=== PATIENT | female | born 1985 | race Caucasian/White ===

== ENCOUNTER 2017-06-18 21:00 | Emergency (ER) | payer OTHER ==
[~2017-06-18] VITALS: Ht 172.7 cm; Wt 67.1 kg
[~2017-06-18 21:00] MED LIST: HYDR-971 PO; PRED20TA PO; PRED50TA PO; TRAM50TA PO
[2017-06-18 21:05] VITALS: BP 114/83
--- NOTE | 2017-06-18 21:40 | PHYS DOC ---
General Chief Complaint: ABDOMINAL PAIN Stated Complaint: ABD AND BACK PAIN X 2 DAYS Time Seen by MD: 21:27 Source: patient Exam Limitations: no limitations Problems: History of Present Illness Initial Comments Patient is a 31-year-old female who comes to the ED complaining of abdominal discomfort. Patient states that she developed lower abdominal discomfort starting on Thursday. She had a doctor's appointment scheduled for Thursday however when the time came for the appointment her symptoms weren't that bad so she did not follow-up with the actual appointment. After she missed the appointment on Thursday she says that her symptoms have been intermittent and slowly worsening. She says that today the discomfort spread to her bilateral low back and she threw up once at home. At that point she decided to come for evaluation, on arrival to the emergency department she did vomit once in the exam room prior to my seeing her. Patient states that she did have several loose stools 2 days ago (on Thursday) and has not had a bowel movement since that time. She denies travel or bad food exposure she denies sick contacts with similar symptoms. She's had some chills and sweats but has not taken her temperature she's not had any blood in her stools or emesis. Patient has had urinary frequency hesitancy and darkening and she states that her urine has smelled poorly the past few days. She did miss work and is requesting a work note. ED vital signs are stable (no tachycardia/fever). Timing/Duration: getting worse, changing over time Severity: moderate Modifying Factors: worse with eating, worse with movement, improves with rest Associated Symptoms: diaphoresis, fever/chills, malaise, nausea/vomiting Allergies: Coded Allergies: ketorolac (Verified Allergy, Intermediate, severe anxiety /sob, 06/05/16) Past Medical History Medical History: other (SLE, overactive bladder, bipolar) Surgical History: appendectomy Social History Smoker: non-smoker Alcohol: none Drugs: none Review of Systems Constitutional: see HPI, denies fever Respiratory: denies cough, denies shortness of breath Cardiovascular: denies chest pain, denies palpitations Gastrointestinal: see HPI Genitourinary: see HPI Musculoskeletal: see HPI, denies joint pain, denies joint swelling, denies neck pain Psychiatric/Neurological: denies headache, denies numbness, denies paresthesia Physical Exam General Appearance: WD/WN, no apparent distress Ear, Nose, Throat: hearing grossly normal, normal ENT inspection, normal pharynx Neck: non-tender, supple Respiratory: normal breath sounds, no respiratory distress Gastrointestinal: normal bowel sounds, soft (mildly distended, moderate suprapubic tenderness, generalized diffuse mild tenderness to palpation no rebound guarding or masses, negative Dai) Back: no CVA tenderness, no vertebral tenderness Extremities: non-tender, normal inspection 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 Aggressive hydration with Gatorade or water. [id number] Tylenol as needed. Prescription: Bactrim DS, Pyridium 100 mg Follow-up with your doctor in 7-10 days for recheck and urine culture results. Return to ED with new or changing symptoms. AUGUSTIN CROSS DO Jun 18, 2017 21:40
[2017-06-18] MEDS ORDERED: PROMETHAZINE IM 25 MG/ML VIAL IM ONE (22:00)
[2017-06-18] MEDS ORDERED: ONDANSETRON ODT 4 MG TAB.RAPDIS PO ONE (22:00)
[2017-06-18 22:16] LABS: CLARITY,URINE CLOUDY; COLOR,URINE YELLOW
[2017-06-18 22:17] LABS: GLUCOSE,URINE NEG (NEG)
[2017-06-18 22:18] LABS: BILIRUBIN,URINE NEG (NEG); NITRITE,URINE POS (NEG); UROBILINOGEN,URINE 0.2 mg/dL (0.2 mg/dL)
[2017-06-18 22:23] LABS: BACTERIA,URINE MANY /HPF (0-FEW); SQUAMOUS EPITHELIAL CELL,UR MOD /LPF; WBC,URINE >40 /HPF (0-4)
[2017-06-18] MEDS ORDERED: ONDA4TAB10 PO (22:23)
[2017-06-18] MEDS ORDERED: PHEN100T82 PO (22:23)
[2017-06-18] MEDS ORDERED: SULF1TAB24 PO (22:23)
[2017-06-18] MEDS ORDERED: ONDANSETRON 4MG ODT 4TABLET STARTPACK. PO ONE ×2 (22:29→22:45)
[2017-06-18] MEDS ORDERED: cefTRIAXone IM 1 GM VIAL IM ONE (22:45)
[2017-06-18] MEDS ORDERED: PHENAZOPYRIDINE 200 MG TABLET. PO ONE (22:45)
== END 2017-06-18 22:44 | disposition home or self-care (01) ==
LOC: ER 21:00
DX: N39.0 Urinary tract infection, site not specified (principal); M54.5 Low back pain; Z90.49 Acquired absence of other specified parts of digestive tract; Z88.6 Allergy status to analgesic agent
CPT/HCPCS: 81001; 87086; 96372; 99284; J0696; J2550; Q0162; 87186

== ENCOUNTER 2018-04-23 09:44 | Emergency (ER) | payer SELFPAY ==
[~2018-04-23] VITALS: Ht 172.7 cm; Wt 72.0 kg
[~2018-04-23 09:44] MED LIST changes: +ONDA4TAB10 PO; +PHEN100T82 PO; +SULF1TAB24 PO
[2018-04-23] MEDS ORDERED: HYDR-2758 PO (10:05)
--- NOTE | 2018-04-23 10:10 | PHYS DOC ---
Past History Past Medical History: Bipolar, Other Past Surgical History: Appendectomy Alcohol Use: None Drug Use: None Adult General Chief Complaint Chief Complaint: SKIN PROBLEM HPI HPI Patient is a 32-year-old female with chronic urticaria who is presenting with an apparent flareup she said that normally she does have some skin lesions but since yesterday she has noticed an increase they are all over her arms or trunk or legs they are itchy and painful no respiratory distress she normally takes 40 or 50 mg of prednisone a day she did have allergy testing at a while back but she does not have insurance so she has not been able to get good follow-up unfortunately. She felt warm last night but no objective fever that she knows about. Current Medications Current Medications Current Medications Medications (Trade) Dose Ordered Sig/Panfilo Start Time Stop Time Status Last Admin Dose Admin Methylprednisolone Sodium Succinate (SOLU-Medrol 125MG VIAL) 125 mg 1X ONCE 04/23/18 10:15 04/23/18 10:16 Allergies Allergies Allergies Coded Allergies Type Severity Reaction Last Updated Verified ketorolac Allergy Intermediate severe anxiety /sob 06/05/16 Yes Physical Exam Physical Exam Constitutional: Well developed, well nourished, no acute distress, non-toxic appearance. [] HENT: Normocephalic, atraumatic, bilateral external ears normal, oropharynx moist, no oral exudates, nose normal. [] Neck: Normal range of motion, no tenderness, supple, no stridor. [] Cardiovascular:Heart rate regular rhythm, no murmur [] Lungs & Thorax: Bilateral breath sounds clear to auscultation [] Abdomen: Bowel sounds normal, soft, no tenderness, no masses, no pulsatile masses. [] Skin: There are multiple raised wheals throughout the arms abdomen and legs trunk scattered on the face no oral swelling lungs are clear Extremities: No tenderness, no cyanosis, no clubbing, ROM intact, no edema. [] Neurologic: Alert and oriented X 3, normal motor function, normal sensory function, no focal deficits noted. [] Psychologic: Affect normal, judgement normal, mood normal. [] EKG EKG [] Radiology/Procedures Radiology/Procedures [] Course & Med Decision Making Course & Med Decision Making Pertinent Labs and Imaging studies reviewed. (See chart for details) []32-year-old female with lupus on plaque well history of apparent chronic urticaria presenting with urticaria carry a flareup she is on high dose daily prednisone she was given a dose of IM Solu-Medrol in the emergency room. She does report severe pain. I am unable to access [employer] at the time of this dictation unfortunately the website does appear to be down however the patient tells me she is not on chronic narcotic therapy and she has not been to this ER in over a year. Due to the above for #10 Ceres was provided, advised to follow- up with primary care doctor regarding her high dose of prednisone to see if there are any alternative agents. Dragon Disclaimer Dragon Disclaimer This electronic medical record was generated, in whole or in part, using a voice recognition dictation system. Departure Departure: Impression: Primary Impression: Urticaria Disposition: 01 HOME, SELF-CARE Condition: STABLE Referrals: ISAEL DYER (PCP) Patient Instructions: Hives, [id number] Scripts Hydrocodone Bit/Acetaminophen (HYDROCODONE-APAP 5-325 ) 1 Each Tablet 1 TAB PO PRN Q6HRS PRN for PAIN, #10 TAB 0 Refills Prov: LUIS MELVIN MD 04/23/18 LUIS MELVIN MD Apr 23, 2018 10:10
[2018-04-23] MEDS ORDERED: methylPREDNISolone SOD SUCC PF 125 MG/2 ML VIAL. IM ONE (10:15)
[2018-04-23 10:22] VITALS: BP 116/84
== END 2018-04-23 10:26 | disposition home or self-care (01) ==
LOC: ER 09:44
DX: L50.9 Urticaria, unspecified (principal); Z88.8 Allergy status to other drugs, medicaments and biological substances
CPT/HCPCS: 96372; 99283; J2930

== ENCOUNTER 2018-05-23 15:16 | Emergency (ER) | payer SELFPAY ==
[~2018-05-23] VITALS: Ht 172.7 cm; Wt 84.0 kg
[~2018-05-23 15:16] MED LIST changes: +HYDR-2758 PO
[2018-05-23 15:33] VITALS: BP 123/84
[2018-05-23] MEDS ORDERED: IV NORMAL SALINE 1,000ML 1,000 ML IV ONE (15:45)
[2018-05-23 16:27] LABS: BASO % 1 % (0-3); EOS % 1 % (0-3); HEMATOCRIT 44.2 % (36.0-47.0); HEMOGLOBIN 14.9 g/dL (12.0-15.5); LYMPH # 0.7 x10^3/uL (1.0-4.8); LYMPH % 13 % (24-48); MEAN CORPUSCULAR HEMOGLOBIN 31 pg (25-35); MEAN CORPUSCULAR HGB CONC 34 g/dL (31-37); MEAN CORPUSCULAR VOLUME 93 fL (79-100); MONO # 0.2 x10^3/uL (0.0-1.1); MONO % 5 % (0-9); NEUT # 4.1 x10^3uL (1.8-7.7); NEUT % 81 % (31-73); PLATELET COUNT 391 x10^3/uL (140-400); RED BLOOD COUNT 4.74 x10^6/uL (3.50-5.40); RED CELL DISTRIBUTION WIDTH 12.9 % (11.5-14.5); WHITE BLOOD COUNT 5.1 x10^3/uL (4.0-11.0)
[2018-05-23 16:35] LABS: CALCIUM 9.3 mg/dL (8.5-10.1); CREATININE 0.7 mg/dL (0.6-1.0); POTASSIUM 3.8 mmol/L (3.5-5.1)
[2018-05-23 16:36] LABS: BILIRUBIN,URINE NEG (NEG); CLARITY,URINE CLEAR; COLOR,URINE STRAW; GLUCOSE,URINE NEG (NEG)
[2018-05-23 16:37] LABS: BACTERIA,URINE FEW /HPF (0-FEW); NITRITE,URINE NEG (NEG); SQUAMOUS EPITHELIAL CELL,UR FEW /LPF; UROBILINOGEN,URINE 0.2 mg/dL (0.2 mg/dL); WBC,URINE OCC /HPF (0-4)
[2018-05-23] MEDS ORDERED: diphenhydrAMINE 50 MG/ML VIAL IVP ONE (16:45)
[2018-05-23] MEDS ORDERED: PROCHLORPERAZINE 10 MG/2 ML VIAL. IV ONE (16:45)
[2018-05-23] MEDS ORDERED: methylPREDNISolone SOD SUCC PF 125 MG/2 ML VIAL. IV ONE (16:45)
[2018-05-23 17:04] LABS: U PREG PATIENT NEGATIVE (NEG)
[2018-05-23] MEDS ORDERED: MORPHINE SULFATE 5 MG/ML SYRINGE. IV ONE (17:20)
[2018-05-23] MEDS ORDERED: HYDR-971 PO (17:55)
[2018-05-23] MEDS ORDERED: PRED-220 PO (17:57)
--- NOTE | 2018-05-24 06:35 | ED.ADGEN ---
Past History Past Medical History: Bipolar, Other Past Surgical History: Appendectomy Alcohol Use: None Drug Use: None Adult General HPI HPI Patient is a 32 year old female who presents with urticaria, nausea, generalized pain. Patient does have a history of lupus. She takes prednisone 30 mg daily along with Plaquenil. Today, she presents to the ER complaining of some nausea and vomiting over the last 48 hours. She has had hives developing over her entire body over the same time. She also has worsening generalized body pain. The patient states she has these episodes not infrequently. She has chronic hives. She is followed by her primary care physician. She does not have any respiratory involvement. No swelling of the lips, tongue, or airway problems. Review of Systems Review of Systems Constitutional: Denies fever or chills Eyes: Denies change in visual acuity HENT: Denies nasal congestion or sore throat Respiratory: Denies cough or shortness of breath Cardiovascular: No additional information not addressed in HPI GI: Denies abdominal pain, nausea : Denies dysuria Musculoskeletal: Denies back pain or joint pain Integument: hives Neurologic: Denies headache Endocrine: Denies polyuria All other systems were reviewed and found to be within normal limits, except as documented in this note. Current Medications Current Medications Current Medications Medications (Trade) Dose Ordered Sig/Panfilo Start Time Stop Time Status Last Admin Dose Admin Diphenhydramine HCl (Benadryl) 25 mg 1X ONCE 05/23/18 16:45 05/23/18 16:46 DC 05/23/18 16:19 25 MG Methylprednisolone Sodium Succinate (SOLU-Medrol 125MG VIAL) 125 mg 1X ONCE 05/23/18 16:45 05/23/18 16:46 DC 05/23/18 16:19 125 MG Morphine Sulfate (Morphine 5mg Syringe) 5 mg 1X ONCE 05/23/18 17:20 05/23/18 17:21 DC 05/23/18 17:17 5 MG Prochlorperazine Edisylate (Compazine) 10 mg 1X ONCE 05/23/18 16:45 05/23/18 16:46 DC 05/23/18 16:19 10 MG Sodium Chloride 1,000 ml @ 1,000 mls/hr 1X ONCE 05/23/18 15:45 05/23/18 16:44 DC 05/23/18 15:45 1,000 MLS/HR Allergies Allergies Allergies Coded Allergies Type Severity Reaction Last Updated Verified ketorolac Allergy Intermediate severe anxiety /sob 06/05/16 Yes Physical Exam Physical Exam Constitutional: Well developed, well nourished, no acute distress, non-toxic appearance HENT: Normocephalic, atraumatic, bilateral external ears normal, oropharynx moist Eyes: PERRLA, EOMI, conjunctiva normal Neck: Normal range of motion, no tenderness Cardiovascular:Heart rate regular rhythm, no murmur Lungs & Thorax: Bilateral breath sounds clear to auscultation Abdomen: Bowel sounds normal, soft, no tenderness Skin: Warm, dry, diffuse urticarial rash over arms, torso, neck Back: No tendernes Extremities: No edema Neurologic: Alert and oriented X 3 Current Patient Data Vital Signs Vital Signs Date Time Temp Pulse Resp B/P (MAP) Pulse Ox O2 Delivery O2 Flow Rate FiO2 05/23/18 18:05 118 20 96 Room Air 05/23/18 15:33 98.3 Lab Results Laboratory Tests Test 05/23/18 15:55 White Blood Count 5.1 x10^3/uL (4.0-11.0) Red Blood Count 4.74 x10^6/uL (3.50-5.40) Hemoglobin 14.9 g/dL (12.0-15.5) Hematocrit 44.2 % (36.0-47.0) Mean Corpuscular Volume 93 fL (79-100) Mean Corpuscular Hemoglobin 31 pg (25-35) Mean Corpuscular Hemoglobin Concent 34 g/dL (31-37) Red Cell Distribution Width 12.9 % (11.5-14.5) Platelet Count 391 x10^3/uL (140-400) Neutrophils (%) (Auto) 81 % (31-73) H Lymphocytes (%) (Auto) 13 % (24-48) L Monocytes (%) (Auto) 5 % (0-9) Eosinophils (%) (Auto) 1 % (0-3) Basophils (%) (Auto) 1 % (0-3) Neutrophils # (Auto) 4.1 x10^3uL (1.8-7.7) Lymphocytes # (Auto) 0.7 x10^3/uL (1.0-4.8) L Monocytes # (Auto) 0.2 x10^3/uL (0.0-1.1) Eosinophils # (Auto) 0.0 x10^3/uL (0.0-0.7) Basophils # (Auto) 0.0 x10^3/uL (0.0-0.2) Urine Collection Type Unknown Urine Color Straw Urine Clarity Clear Urine pH 7.0 Urine Specific [place] 1.010 Urine Protein Neg (NEG-TRACE) Urine Glucose (UA) Neg mg/dL (NEG) Urine Ketones (Stick) Neg mg/dL (NEG) Urine Blood Small (NEG) Urine Nitrite Neg (NEG) Urine Bilirubin Neg (NEG) Urine Urobilinogen Dipstick 0.2 mg/dL (0.2 mg/dL) Urine Leukocyte Esterase Neg (NEG) Urine RBC 1-2 /HPF (0-2) Urine WBC Occ /HPF (0-4) Urine Squamous Epithelial Cells Few /LPF Urine Bacteria Few /HPF (0-FEW) Urine Test Negative (NEG) Sodium Level 135 mmol/L (136-145) L Potassium Level 3.8 mmol/L (3.5-5.1) Chloride Level 98 mmol/L (98-107) Carbon Dioxide Level 30 mmol/L (21-32) Anion Gap 7 (6-14) Blood Urea Nitrogen 10 mg/dL (7-20) Creatinine 0.7 mg/dL (0.6-1.0) Estimated GFR (Cockcroft-Gault) 97.0 Glucose Level 91 mg/dL (70-99) Calcium Level 9.3 mg/dL (8.5-10.1) EKG EKG [] Radiology/Procedures Radiology/Procedures [] Course & Med Decision Making Course & Med Decision Making Pertinent Labs and Imaging studies reviewed. (See chart for details) Patient is seen and examined in the ER. She has no acute findings on her lab panel. During the ED course, she was given some IV fluids along with Compazine, Benadryl, Toradol, and a single dose of morphine. These medications did relieve her pain symptoms. Her urticaria was also improved. Plan is for discharge home. She is advised to double her dose of prednisone over the next 4 days and then return to her baseline dose of 30 mg. She is also advised to use over-the- counter antihistamine medications as needed. Return precautions are discussed and she will come back to the ER for any new or worsening symptoms. Final Impression Final Impression Urticaria Rosemarie Disclaimer Rosemarie Disclaimer This electronic medical record was generated, in whole or in part, using a voice recognition dictation system. ZEHRA RIDER DO May 24, 2018 06:35
== END 2018-05-23 18:05 | disposition home or self-care (01) ==
LOC: ER 15:16
DX: L50.9 Urticaria, unspecified (principal); M79.1 Myalgia; R11.2 Nausea with vomiting, unspecified; F31.9 Bipolar disorder, unspecified; Z88.8 Allergy status to other drugs, medicaments and biological substances
CPT/HCPCS: 36415; 80048; 81001; 81025; 85025; 96361; 96374; 96375; 99285; J0780; J1200; J2270; J2930; J7030

== ENCOUNTER 2020-03-15 14:18 | Emergency (ER) | payer SELFPAY ==
[~2020-03-15] VITALS: Ht 172.7 cm; Wt 66.0 kg
[~2020-03-15 14:18] MED LIST changes: +HYDR-2155 PO; -HYDR-2758 PO; +HYDR-3165 PO; -HYDR-971 PO; +PRED-220 PO
[2020-03-15 14:20] VITALS: BP 125/97
--- NOTE | 2020-03-15 14:37 | PHYS DOC ---
Past History Past Medical History: Bipolar, Other Additional Past Medical Histor: Lupus Past Surgical History: Appendectomy Alcohol Use: None Drug Use: None General Adult EDM: Chief Complaint: HAND PROBLEM HPI: HPI: Patient presents to the emergency department for evaluation of a right hand injury sustained about an hour prior to arrival. She states she was walking down the stairs, lost her balance, and got her right hand caught between the banister and a heavy object. She complains of soft tissue swelling, and bruising noted along the ulnar aspect of the hand, along the shaft of the fifth metacarpal. The MCP joints and wrist are nontender, with normal range of motion in all digits, she has no other injuries. She has no open wounds. She has no other complaints or injuries. Review of Systems: Review of Systems: Constitutional: Denies fever or chills Musculoskeletal: Denies back pain or joint pain Integument: Denies rash Heart Score: Risk Factors: Risk Factors: DM, Current or recent (<one month) smoker, HTN, HLP, family history of CAD, obesity. Risk Scores: Score 0 - 3: 2.5% MACE over next 6 weeks - Discharge Home Score 4 - 6: 20.3% MACE over next 6 weeks - Admit for Clinical Observation Score 7 - 10: 72.7% MACE over next 6 weeks - Early Invasive Strategies Allergies: Allergies: Allergies Coded Allergies Type Severity Reaction Last Updated Verified ketorolac Allergy Intermediate severe anxiety /sob 06/05/16 Yes Physical Exam: PE: PHYSICAL EXAM: HEENT: Atruamatic NECK: Supple, normal ROM, non-tender. CARDIAC: Regular Rate and Rhythm LUNGS: Clear Bilaterally EXTREMITIES: There is tenderness to palpation of soft tissue swelling on the ulnar aspect of the right hand, overlying the shaft of the fifth metacarpal. Distal capillary refill, sensation, and motor function is normal. There is no rotation or malalignment of the digits. The wrist and proximal to the wrist in the right upper extremity are atraumatic, the remainder the extremities are at raumatic. The remainder the hand on the right, other than the area of the fifth metacarpal, is nontender and atraumatic. EKG: EKG: [] Radiology/Procedures: Radiology/Procedures: PROCEDURE: HAND RIGHT 3V Three-view right hand HISTORY: Pain status post injury AP lateral oblique views right hand COMPARISON: July 13, 2012 FINDINGS: There is degenerative changes of the distal interphalangeal joint of the little finger with minimal marginal spurring and mild anterior lateral subluxation. The remaining visualized osseous structures appear normal. IMPRESSION: Degenerative changes of the distal interphalangeal joint of the little finger consistent with osteoarthrosis. No acute findings. [] Course & Med Decision Making: Course & Med Decision Making Pertinent Imaging studies reviewed. (See chart for details) [] Patient remains stable. I discussed test results, the need for close follow- up, and return precautions. Dragon Disclaimer: Dragon Disclaimer: This electronic medical record was generated, in whole or in part, using a voice recognition dictation system. Departure Departure: Impression: Primary Impression: Hand contusion Disposition: HOME, SELF-CARE Condition: STABLE Referrals: SHIREEN SORIANO DO (PCP) Patient Instructions: Hand Contusion, RICE - Routine Care for Injuries SELENA ALCANTARA MD Mar 15, 2020 14:36
--- NOTE | 2020-03-15 14:53 | RAD ---
Three-view right hand HISTORY: Pain status post injury AP lateral oblique views right hand COMPARISON: July 13, 2012 FINDINGS: There is degenerative changes of the distal interphalangeal joint of the little finger with minimal marginal spurring and mild anterior lateral subluxation. The remaining visualized osseous structures appear normal. IMPRESSION: Degenerative changes of the distal interphalangeal joint of the little finger consistent with osteoarthrosis. No acute findings. Electronically signed by: Saroj Azul III, MD (03/15/2020 2:50 PM) [id number]
== END 2020-03-15 14:58 | disposition home or self-care (01) ==
LOC: ER 14:18
DX: S60.221A Contusion of right hand, initial encounter (principal); Z88.8 Allergy status to other drugs, medicaments and biological substances; W23.0XXA Caught, crushed, jammed, or pinched between moving objects, initial encounter; Y93.01 Activity, walking, marching and hiking; Y92.89 Other specified places as the place of occurrence of the external cause; Y99.8 Other external cause status
CPT/HCPCS: 73130; 99283

== ENCOUNTER 2021-06-20 16:58 | Emergency (ER) | payer SELFPAY ==
[~2021-06-20] VITALS: Ht 172.7 cm; Wt 66.0 kg
--- NOTE | 2021-06-20 17:27 | PHYS DOC ---
Past History Past Medical History: Other Additional Past Medical Histor: Lupus (BREANN BRADFORD DO) Past Surgical History: Appendectomy (BREANN BRADFORD DO) Alcohol Use: None Drug Use: None (BREANN BRADFORD DO) General Adult EDM: Chief Complaint: ABDOMINAL PAIN HPI: HPI: 35-year-old female presents with nausea, vomiting, abdominal pain, fatigue. The patient started having vomiting and diarrhea today. The abdominal pain is a generalized cramping. She has had multiple episodes. She feels very tired. Yesterday she had fatigue and general malaise. The patient is not vaccinated against COVID-19. She has not been tested for COVID-19. She does have lupus and had a flareup recently. She feels like she has had a fever but did not measure one. (BREANN BRADFORD DO) Review of Systems: Review of Systems: Constitutional: Fever Eyes: Denies change in visual acuity HENT: Denies nasal congestion or sore throat Respiratory: Denies cough or shortness of breath Cardiovascular: Denies chest pain or edema GI: Generalized abdominal pain, nausea, vomiting, diarrhea. : Denies dysuria Musculoskeletal: Denies back pain or joint pain Integument: Denies rash Neurologic: Denies headache, focal weakness or sensory changes Endocrine: Denies polyuria or polydipsia Lymphatic: Denies swollen glands Psychiatric: Denies depression or anxiety (BREANN BRADFORD DO) Allergies: Allergies: Allergies Coded Allergies Type Severity Reaction Last Updated Verified ketorolac Allergy Intermediate severe anxiety /sob 06/05/16 Yes (BREANN BRADFORD DO) Physical Exam: PE: Constitutional: Well developed, well nourished, no acute distress, non-toxic appearance. [] HENT: Normocephalic, atraumatic, bilateral external ears normal, oropharynx moist, no oral exudates, nose normal. [] Eyes: PERRLA, EOMI, conjunctiva normal, no discharge. [] Neck: Normal range of motion, no tenderness, supple, no stridor. [] Cardiovascular: Heart rate 102, regular rhythm, no murmur [] Lungs & Thorax: Bilateral breath sounds clear to auscultation [] Abdomen: Bowel sounds normal, soft, generalized tenderness, no masses, no pulsatile masses. [] Skin: Warm, dry, no erythema, no rash. [] Back: No tenderness, no CVA tenderness. [] Extremities: No tenderness, no cyanosis, no clubbing, ROM intact, no edema. [] Neurologic: Alert and oriented X 3, normal motor function, normal sensory function, no focal deficits noted. [] Psychologic: Affect normal, judgement normal, mood normal. [] (BREANN BRADFORD DO) Current Patient Data: Vital Signs: Vital Signs Date Time Temp Pulse Resp B/P (MAP) Pulse Ox O2 Delivery O2 Flow Rate FiO2 06/20/21 17:08 97.5 112 22 167/102 96 (BREANN BRADFORD DO) EKG: EKG: [] (BREANN BRADFORD DO) EKG: My interpretation EKG shows a sinus rhythm at 96 bpm. Slightly prolonged QT interval at 390 ms. QTC is 494 ms. No findings of acute STEMI with contralateral changes. Time of this EKG was 1736 hrs. (TIFFANY BHAKTA MD) Radiology/Procedures: Radiology/Procedures: [] (BREANN BRADFORD DO) Heart Score: C/O Chest Pain: N/A Risk Factors: Risk Factors: DM, Current or recent (<one month) smoker, HTN, HLP, family history of CAD, obesity. Risk Scores: Score 0 - 3: 2.5% MACE over next 6 weeks - Discharge Home Score 4 - 6: 20.3% MACE over next 6 weeks - Admit for Clinical Observation Score 7 - 10: 72.7% MACE over next 6 weeks - Early Invasive Strategies (BREANN BRADFORD DO) C/O Chest Pain: N/A HEART Score for Chest Pain: HEART Score for Chest Pain Response (Comments) Value History Slighlty/Non-Suspicious 0 ECG Normal 0 Age < 45 0 Risk Factors 1 or 2 Risk Factors 1 Troponin < Normal Limit 0 Total 1 (TIFFANY BAHKTA MD) Course & Med Decision Making: Course & Med Decision Making Pertinent Labs and Imaging studies reviewed. (See chart for details) The patient's work-up is pending. 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 [] (BREANN BRADFORD DO) Course & Med Decision Making See Dr. Bradford chart for details prior shift change 1800. Patient to remain on clear fluids. No solids or milk products. Push fluids such as Jell-O, apple juice, grape juice, popsicles,. Take Tylenol and ibuprofen for discomfort. Follow-up pending Covid test. Self isolate. Take Zofran 8 mg up to 4 times a day for active nausea and vomiting. Reexam if no improvement. Follow-up primary care. Appears this is a viral syndrome. However with history of lupus must entertain high risk or exacerbation of this illness. Must follow-up closely with primary care. Recommend patient get flu vaccination this fall. Get Covid vaccination went over this acute illness. At time of discharge patient lactic acid cleared. Electrolytes had normalized. The patient report marked clearing of her symptoms. Impression: 1. N/V/Diarrhea- Abdomen Pain 2. Dehydration 3. Hypokalemia- 21.8 4. Mild Leukocytosis 13.8 5. Viral Syndrome 6. Hx. Lupus 7. Elevated Lactic Acid 3.7 (TIFFANY BHAKTA MD) Dragon Disclaimer: Dragon Disclaimer: This electronic medical record was generated, in whole or in part, using a voice recognition dictation system. (BREANN BRADFORD DO) Departure Departure: Referrals: SHIREEN SORIANO DO (PCP) Scripts Ondansetron Hcl (ZOFRAN) 4 Mg Tablet 8 MG PO QIDPRN PRN for NAUSEA/VOMITING, #30 TAB Prov: TIFFANY BHAKTA MD 06/20/21 Dragon Disclaimer This chart was dictated in whole or in part using Voice Recognition software in a busy, high-work load, and often noisy Emergency Department environment. It may contain unintended and wholly unrecognized errors or omissions. (TIFFANY BHAKTA MD) BREANN BRADFORD DO Jun 20, 2021 17:27 TIFFANY BHAKTA MD Jun 20, 2021 18:11
[2021-06-20 17:35] LABS: BASO % 0 % (0-3); EOS % 0 % (0-3); HEMATOCRIT 41.4 % (36.0-47.0); HEMOGLOBIN 13.8 g/dL (12.0-15.5); LYMPH # 2.2 x10^3/uL (1.0-4.8); LYMPH % 16 % (24-48); MEAN CORPUSCULAR HEMOGLOBIN 31 pg (25-35); MEAN CORPUSCULAR HGB CONC 33 g/dL (31-37); MEAN CORPUSCULAR VOLUME 92 fL (79-100); MONO # 0.9 x10^3/uL (0.0-1.1); MONO % 7 % (0-9); NEUT # 10.6 x10^3uL (1.8-7.7); NEUT % 77 % (31-73); PLATELET COUNT 547 x10^3/uL (140-400); RED BLOOD COUNT 4.49 x10^6/uL (3.50-5.40); RED CELL DISTRIBUTION WIDTH 12.8 % (11.5-14.5); WHITE BLOOD COUNT 13.8 x10^3/uL (4.0-11.0)
--- NOTE | 2021-06-20 17:40 | RAD ---
Site ID: [id number] EXAMINATION: XR CHEST 1V. HISTORY: 35 years Female Reason: covid COMPARISON: None. Findings: The lungs are clear. The heart size is normal. There is no effusion or pneumothorax. The mediastinum and audi appear unremarkable. Impression: Unremarkable study. Electronically signed by: Micah Eugene MD (06/20/2021 5:37 PM) [id number]
--- NOTE | 2021-06-20 17:47 | EKG ---
[address] [address] Test Date: 2021-06-20 Test Time: 17:36:37 Pat Name: JAHAIRA VELAZQUEZ Department: Room: Gender: F [employer] Dealer: ALDO : 1985 Requested By: BREANN BRADFORD Order Number: [id number] Reading MD: Measurements Intervals [place] Rate: 96 P: 44 TX: 166 QRS: 58 QRSD: 92 T: 32 QT: 390 QTc: 494 Interpretive Statements SINUS RHYTHM PROLONGED QT NO SPECIFIC ECG ABNORMALITIES RI6.02 No previous ECG available for comparison
[2021-06-20 17:52] LABS: ALBUMIN 4.2 g/dL (3.4-5.0); ALBUMIN/GLOBULIN RATIO 1.1 (1.0-1.7); CALCIUM 9.3 mg/dL (8.5-10.1); CREATININE 1.1 mg/dL (0.6-1.0); GFR 56.5; TOTAL BILIRUBIN 0.5 mg/dL (0.2-1.0); TOTAL PROTEIN 8.2 g/dL (6.4-8.2)
[2021-06-20 17:53] LABS: POTASSIUM 2.8 mmol/L (3.5-5.1)
[2021-06-20] MEDS ORDERED: POTASSIUM CHLORIDE 20MEQ 200 ML IV ONE (17:55)
[2021-06-20] MEDS ORDERED: ONDANSETRON PF 4 MG/2 ML VIAL. ONE (17:55)
[2021-06-20] MEDS ORDERED: IV RINGERS SOLUTION,LACTATED 1,000 ML IV ONE ×2 (18:15)
[2021-06-20 19:05] LABS: PREG TEST PT QUAL NEGATIVE (NEG)
[2021-06-20 22:44] LABS: CALCIUM 7.6 mg/dL (8.5-10.1); CREATININE 0.8 mg/dL (0.6-1.0); GFR 81.6; POTASSIUM 3.8 mmol/L (3.5-5.1)
[2021-06-20] MEDS ORDERED: ONDA4TAB7 PO (23:13)
[2021-06-20 23:35] VITALS: BP 133/90
[2021-06-21 00:02] LABS: BACTERIA,URINE 0 /HPF (0-FEW); BILIRUBIN,URINE NEG (NEG); CLARITY,URINE CLEAR; COLOR,URINE YELLOW; GLUCOSE,URINE NEG (NEG); HYALINE CASTS, URINE OCC /HPF; NITRITE,URINE NEG (NEG); RBC,URINE 0 /HPF (0-2); SQUAMOUS EPITHELIAL CELL,UR FEW /LPF; UROBILINOGEN,URINE 0.2 mg/dL (0.2 mg/dL)
== END 2021-06-20 23:58 | disposition home or self-care (01) ==
LOC: ER 16:58
DX: E86.0 Dehydration (principal); E87.6 Hypokalemia; D72.829 Elevated white blood cell count, unspecified; B34.9 Viral infection, unspecified; Z20.822 Contact with and (suspected) exposure to COVID-19
CPT/HCPCS: 36415; 71045; 80048; 80053; 81001; 83605; 84484; 84703; 85025; 93005; 96360; 96361; 99285; C9803; J7120; U0003

== ENCOUNTER 2021-07-20 01:50 | Emergency (ER) | payer BC ==
[~2021-07-20] VITALS: Ht 172.7 cm; Wt 70.4 kg
[~2021-07-20 01:50] MED LIST changes: +ONDA4TAB7 PO
[2021-07-20] MEDS ORDERED: MORPHINE SULFATE 4 MG/ML DISP.SYRIN. IM ONE (02:15)
[2021-07-20] MEDS ORDERED: diphenhydrAMINE HCL 25 MG CAPSULE PO ONE (02:15)
[2021-07-20] MEDS ORDERED: ACETAMINOPHEN 500 MG TABLET PO ONE (02:15)
--- NOTE | 2021-07-20 02:23 | PHYS DOC ---
Past History Past Medical History: Other Additional Past Medical Histor: Lupus Past Surgical History: Appendectomy Alcohol Use: None Drug Use: None Adult General Chief Complaint Chief Complaint: UPPER EXTREMITY PAIN HPI HPI Patient is a 35-year-old female with a past medical history significant for lupus on Plaquenil who presents with a chief complaint of right forearm pain. States that it started several hours ago, is sharp in nature, 7 out of 10 and is associated with some mild swelling and no radiation. States she had had anything like this before. Denies any history of VTE. Denies any recent traumas, travels, illnesses, fevers, chest pain, shortness of breath, abdominal pain, nausea, vomiting. Review of Systems Review of Systems Review of systems otherwise unremarkable except noted in HPI Allergies Allergies Allergies Coded Allergies Type Severity Reaction Last Updated Verified ketorolac Allergy Intermediate severe anxiety /sob 06/05/16 Yes Physical Exam Physical Exam Constitutional: Well developed, well nourished, no acute distress, non-toxic appearance. [] HENT: Normocephalic, atraumatic, Eyes: conjunctiva normal, no discharge. [] Neck: Normal range of motion, no tenderness, supple, no stridor. [] Cardiovascular:Heart rate regular rhythm, no murmur [] Lungs & Thorax: Bilateral breath sounds clear to auscultation [] Abdomen: soft, no tenderness, no masses, no pulsatile masses. [] Skin: Warm, dry, no erythema, no rash. [] Extremities: Generalized tenderness about the forearm with no obvious bruising, deformities or swelling, no cyanosis, no clubbing, ROM intact, no edema, neurovascular exam intact. [] Neurologic: Alert and oriented X 3, no focal deficits noted. [] Psychologic: Affect normal, judgement normal, mood normal. [] EKG EKG [] Radiology/Procedures Radiology/Procedures []LINICAL HISTORY: Reason: pain, swelling, elevated dimer COMPARISON: None available. TECHNIQUE: Ultrasound evaluation of the right upper extremity was performed with gomez scale, spectral Doppler. FINDINGS: The right internal jugular, subclavian, axillary, brachial, basilic, and cephalic veins are compressible with normal color and spectral Doppler flow. The radial and ulnar veins are patent. IMPRESSION: No evidence of deep venous thrombosis in the right upper extremity. Electronically signed by: Pretty Amaral MD (07/20/2021 5:52 AM) [id number] Heart Score C/O Chest Pain: No Risk Factors: Risk Factors: DM, Current or recent (<one month) smoker, HTN, HLP, family history of CAD, obesity. Risk Scores: Risk Factors: DM, Current or recent (<one month) smoker, HTN, HLP, family histo ry of CAD, obesity. Course & Med Decision Making Course & Med Decision Making Patient is a 35-year-old female presents with right forearm pain Vital signs not concerning. Physical exam noted above. Given pain medication a nd pain adjunct. Troponin normal. EKG with no STEMI, normal QRS, normal QTC. Elevated dimer. Upper extremity Doppler not concerning. Discussed all findings with patient. Advised to follow-up as soon as she can with her primary care physician. Gave pain recommendations for home. Gave return precautions to the ED. Patient grateful, verbalized understanding and agreed with plan of discharge. Dragon Disclaimer Dragon Disclaimer This electronic medical record was generated, in whole or in part, using a voice recognition dictation system. Departure Departure: Impression: Primary Impression: Arm pain Disposition: HOME / SELF CARE / HOMELESS Condition: GOOD Referrals: SCHUYLER HINKLE (PCP) Patient Instructions: RICE - Routine Care for Injuries Additional Instructions: Thank you for coming into the emergency department tonight and allowing us to take care of you. Please read the attached information to go back over some of the things we discussed. Please begin a Tylenol, Benadryl and ice regimen at home. Please follow-up first thing Thursday morning with your primary care physician to update on ED visit and set up a follow-up visit. Please come back to the ED with new or concerning symptoms as discussed. MUMTAZ COMBS MD Jul 20, 2021 02:23
[2021-07-20] MEDS: oxyCODONE IR 5 MG TABLET PO PRN ×3 (03:00→03:49)
--- NOTE | 2021-07-20 03:16 | RAD ---
EXAM: XR FOREARM_RIGHT 2 VIEWS 07/20/2021 2:09 AM CLINICAL INDICATION: Pain COMPARISON: None TECHNIQUE: 2 views of the right forearm FINDINGS: No acute fracture. Alignment is normal. Mild soft tissue swelling along the distal ulnar a spect of the forearm. IMPRESSION: No acute osseous abnormality. Electronically signed by: Pretty Amaral MD (07/20/2021 3:13 AM) [id number]
--- NOTE | 2021-07-20 03:30 | EKG ---
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
--- NOTE | 2021-07-20 05:55 | RAD ---
CLINICAL HISTORY: Reason: pain, swelling, elevated dimer COMPARISON: None available. TECHNIQUE: Ultrasound evaluation of the right upper extremity was performed with gomez scale, spectral Doppler. FINDINGS: The right internal jugular, subclavian, axillary, brachial, basilic, and cephalic veins are compressi ble with normal color and spectral Doppler flow. The radial and ulnar veins are patent. IMPRESSION: No evidence of deep venous thrombosis in the right upper extremity. Electronically signed by: Pretty Amaral MD (07/20/2021 5:52 AM) [id number]
[2021-07-20] MEDS ORDERED: ONDANSETRON ODT 4 MG TAB.RAPDIS ONE (06:20)
[2021-07-20 06:54] VITALS: BP 165/98
[2021-07-20] MEDS ORDERED: HYDROcodone/APAP 5/325MG 1 TAB TABLET PO ONE (07:30)
[2021-07-20] MEDS ORDERED: HYDR-2759 PO (07:31)
== END 2021-07-20 07:41 | disposition home or self-care (01) ==
LOC: ER 01:50
DX: M79.631 Pain in right forearm (principal); R22.31 Localized swelling, mass and lump, right upper limb; Z88.8 Allergy status to other drugs, medicaments and biological substances
CPT/HCPCS: 36415; 73090; 84484; 85379; 93005; 93971; 96372; 99285; J2270; Q0163

== ENCOUNTER → 2021-12-31 | Outpatient (CLI) | payer BC ==
[~2021-12-31] MED LIST changes: +HYDR-2759 PO
[2022-01-02 20:07] LABS: ALBUM 3.5 g/dL (2.9-4.4); ALPHA 1 0.3 g/dL (0.0-0.4); ALPHA 2 0.7 g/dL (0.4-1.0); BETA 0.8 g/dL (0.7-1.3); GAMMA 1.9 g/dL (0.4-1.8); PROTEIN TOTAL 7.2 g/dL (6.0-8.5); SPEP AG RATIO 0.9 (0.7-1.7)
[2022-01-03 11:09] LABS: KAPPA FREE 71.6 mg/L (3.3-19.4); KAPPA LAMBDA RATIO 1.63 (0.26-1.65); LAMBDA FREE 43.8 mg/L (5.7-26.3)
== END ==
LOC: LAB 16:58
PROVIDERS: ATTEND Internal Medicine Hematology & Oncology
DX: R89.9 Unspecified abnormal finding in specimens from other organs, systems and tissues (principal)
CPT/HCPCS: 36415; 82607; 82728; 82746; 83520; 83540; 83550; 84165; 85045